=== PATIENT | male | born 1980 | race Caucasian/White ===

== ENCOUNTER 2016-07-07 10:43 | Day surgery (SDC) | payer OTHER ==
[~2016-07-07] VITALS: Ht 170.2 cm; Wt 100.4 kg
[2016-07-07 11:29] VITALS: Ht 170.2 cm; Wt 100.4 kg
[2016-07-07] MEDS ORDERED: NEXIUM (11:34)
[2016-07-07 11:39] VITALS: BP 135/79; PULSE 74; RESP 18
[2016-07-07] MEDS ORDERED: MIDAZOLAM 1 MG/ML 2 ML INJ ONE ×2 (12:17)
[2016-07-07] MEDS ORDERED: FENTAnyl 50 MCG/ML VIAL ONE (12:17)
[2016-07-07 12:35] VITALS: BP 128/78; RESP 20
--- NOTE | 2016-07-08 08:52 | GILP ---
DATE OF PROCEDURE: 07/07/2016 PROCEDURE: Colonoscopy. PREOPERATIVE DIAGNOSIS: Patient presenting with history of bloody diarrhea, history of Crohn's dise ase. The patient was on Humira until last November but he continues to have diarrhea, rule out inflamma tory bowel disease, rule out dysplasia, rule out malignancy. POSTOPERATIVE DIAGNOSES: 1. Diffuse pancolitis. The rectum appears normal. The distal descending colon appears to be 4+ colitis, proximal descendin g colon shows 5+ colitis. Transverse colon shows between 3 and 4+ colitis, distal ascending colon s hows 2+ colitis. The ascending colon shows colitis. DESCRIPTION OF PROCEDURE: After the informed written consent was obtained, the patient was asked to lie on the left lateral side, 3 mg Versed and 75 mcg of fentanyl was given as intravenous anesthesi a. When the patient became somnolent, the Olympus video colonoscope was introduced into the rectum and advanced all the way to the cecum. Terminal ileum appeared normal. The rectum appeared normal. Si gmoid colon showed evidence of 1+ colitis type picture, granularity, erythema and friability. Dista l descending colon showed evidence of an uneven mucosal surface with pseudopolyposis mostly in the p roximal descending colon. Multiple biopsies were obtained. The transverse colon showed evidence of granularity and friability and edema indicating moderate degree of colitis. At this time, scope wa s advanced to the cecum and terminal ileum. Terminal ileum appeared normal. Biopsies were done fro m the ascending colon. Ascending colon proximally it showed evidence of an almost normal looking co karlee. Distal part of the ascending colon showed evidence of a 2+ type of colitis indicating erythema , friability and edema. Transverse colon showed evidence of friability, edema, erythema, blotchy mu cosal surface and as mentioned earlier the colon on the left side findings as described. Biopsies w ere done from the ascending colon and put in separate bottles, transverse colon in a separate bottle , the descending colon put in a separate bottle. The sigmoid colon was put in a separate bottle and the procedure was terminated. PLAN: Recommend Humira to be continued. Dictated By: CAROLYNN ALFONSO/ANGELA Conf#: [id number] DID#: [id number]
== END 2016-07-07 15:52 | disposition home or self-care (01) ==
LOC: GIL 10:43
PROVIDERS: ATTEND Internal Medicine Gastroenterology
DX: Z12.11 Encounter for screening for malignant neoplasm of colon (principal); K52.89 Other specified noninfective gastroenteritis and colitis
CPT/HCPCS: 45380; 88305; J2250; J3010; Z7610